=== PATIENT | female | born 1995 | race Hispanic/Latino ===

== ENCOUNTER 2023-04-14 00:37 | Inpatient (IN) | payer OTHER ==
[~2023-04-14] VITALS: Ht 162.6 cm; Wt 72.4 kg
[2023-04-14] VITALS (46 sets, daily range): BP systolic 91–157; BP diastolic 53–97
[2023-04-14] MEDS ORDERED: PREN1CHW6 PO (01:20)
[2023-04-14] MEDS ORDERED: NALBUPHINE HCL 1MG/0.1ML (100MG/10ML) MDV IV ONE (03:40)
[2023-04-14 04:27] LABS: HEMATOCRIT 37.3 % (36.0-47.0); HEMOGLOBIN 12.3 g/dl (12.0-15.5); MEAN CORPUSCULAR HEMOGLOBIN 28.8 pg (27.0-33.0); MEAN CORPUSCULAR VOLUME 87.4 fl (80.0-96.0); PLATELET COUNT, AUTOMATED 138 10^3/uL (150-450); RED BLOOD COUNT 4.27 10^6/uL (4.00-5.40)
[2023-04-14] MEDS ORDERED: PENICILLIN G POTASSIUM 5 MU IV 5 MU in D5W MINI-BAG PLUS 100 ML IV STA (06:44)
[2023-04-14] MEDS ORDERED: LACTATED RINGER'S 1000 ML IV STA (06:44)
[2023-04-14] MEDS ORDERED: CARBOPROST TROMETHAMINE 250 MCG/ML AMP IM PRN (06:45)
[2023-04-14] MEDS ORDERED: LIDOCAINE 1% MDV 20ML VIAL INFIL PRN (06:45)
[2023-04-14] MEDS ORDERED: OXYTOCIN INJ 10UNITS/ML 1ML VIAL IM PRN (06:45)
[2023-04-14] MEDS ORDERED: OXYTOCIN DRIP 30 UNITS in IV 1 EA IV SCH (06:45)
[2023-04-14] MEDS ORDERED: OXYTOCIN INJ 10UNITS/ML 1ML VIAL IV PRN (06:45)
[2023-04-14] MEDS ORDERED: LR 1,000 ML IV SCH ×3 (06:45→10:00)
[2023-04-14] MEDS ORDERED: METHYLERGONOVINE MALEATE 0.2MG/ML 1ML VIAL IM PRN (06:45)
[2023-04-14] MEDS ORDERED: TRANEXAMIC ACID INJection 1,000 MG in NS 100 ML IV PRN (06:45)
[2023-04-14] MEDS ORDERED: OXYTOCIN DRIP 30 UNITS in IV 1 EA IV PRN ×6 (06:45)
[2023-04-14] MEDS: PEN G POT 3,000,000 UNIT/50 ML 3,000,000 UNIT in IV 1 EA IV SCH ×3 (11:07→20:24)
[2023-04-14] MEDS ORDERED: LR 500 ML IV PRN (14:50)
[2023-04-14] MEDS ORDERED: ePHEDrine SULFATE 25 MG/5 ML(5MG/ML) SYRINGE IVP PRN (14:50)
[2023-04-14] MEDS ORDERED: ONDANSETRON 4MG 2ML VIAL IV PRN (14:50)
[2023-04-14] MEDS ORDERED: diphenhydrAMINE 50MG/ML VIAL IV PRN (14:50)
[2023-04-14] MEDS ORDERED: NALOXONE INJ 0.4MG/1ML VIAL IV PRN (14:50)
[2023-04-14] MEDS ORDERED: FENTANYL/ROPIVACAINE/NACL BAG 100 ML EPIDURAL SCH (14:50)
[2023-04-14] MEDS ORDERED: EPIDURAL/PCA KEYS XX PRN (14:50)
[2023-04-14] MEDS ORDERED: CALCIUM CARBONATE 500 MG CHEW U/D PO ONE (17:40)
[2023-04-14] MEDS ORDERED: diphenhydrAMINE 50MG/ML VIAL IV ONE ×2 (17:40→20:15)
[2023-04-14] MEDS ORDERED: D5W/0.45% SODIUM CHLORIDE 1,000 ML IV ONE (17:40)
[2023-04-15] VITALS (10 sets, daily range): BP systolic 107–173; BP diastolic 61–77; O2SAT 97–99
[2023-04-15] MEDS: PEN G POT 3,000,000 UNIT/50 ML 3,000,000 UNIT in IV 1 EA IV SCH (00:06)
[2023-04-15 00:55] LABS: CORD GAS ABE V -5.7; CORD GAS O2 SAT V 51.3 %; CORD GAS PCO2 A 65.7 mmHg; CORD GAS PCO2 V 50.6 mmHg; CORD GAS PH A 7.196 UNITS; CORD GAS PH V 7.256 UNITS; CORD GAS PO2 A 18.6 mmHg; CORD GAS PO2 V 22.6 mmHg; CORD GAS SBC V 18.6 MMOL/L; CORD GAS TCO2 A 26.9 MMOL/L; CORD GAS TCO2 V 23.5 MMOL/L
[2023-04-15 00:56] LABS: CORD GAS HCO3 A 24.9 MMOL/L; CORD GAS O2 SAT A 35.6 %; CORD GAS SBC A 18.8 MMOL/L
[2023-04-15] MEDS ORDERED: DOCUSATE SODIUM 100MG CAPSULE PO PRN (01:15)
[2023-04-15] MEDS ORDERED: ACETAMINOPHEN TAB 650MG DOSE (2X325MG) PO PRN (01:15)
[2023-04-15] MEDS ORDERED: MOM 30ML SUSPENSION UDC PO PRN (01:15)
[2023-04-15] MEDS ORDERED: RHOGAM 300MCG (1500IU) INJ IM SCH (01:15)
[2023-04-15] MEDS ORDERED: METHYLERGONOVINE MALEATE 0.2 MG TAB PO PRN (01:15)
[2023-04-15] MEDS ORDERED: PROMETHAZINE 25 MG TAB PO PRN (01:15)
[2023-04-15] MEDS ORDERED: IBUPROFEN 800 MG TAB PO PRN (01:15)
[2023-04-15] MEDS ORDERED: DIBUCAINE 1% OINTMENT 30GM TOP PRN (01:15)
[2023-04-15] MEDS ORDERED: OXYTOCIN DRIP 30 UNITS in IV 1 EA IV SCH ×4 (01:15)
[2023-04-15] MEDS ORDERED: LR 1,000 ML IV SCH (01:15)
[2023-04-15] MEDS ORDERED: ANUSOL HC CREAM 30GM TOP PRN (01:15)
[2023-04-15] MEDS ORDERED: AMPICILLIN SOD/SULBACTAM SOD 3 GM in D5W MINI-BAG PLUS 100 ML IV ONE (02:00)
[2023-04-15] MEDS: PRENATAL VITAMINS CHEWABLE TABLET PO SCH (08:34)
[2023-04-15] MEDS: IBUPROFEN 600MG TAB PO PRN ×2 (08:34→14:27)
[2023-04-15] MEDS: ACETAMINOPHEN 500 MG TAB PO PRN ×2 (08:34→16:29)
[2023-04-16 06:00] VITALS: BP 107/62; O2SAT 99
[2023-04-16] MEDS: PRENATAL VITAMINS CHEWABLE TABLET PO SCH (07:53)
[2023-04-16] MEDS: IBUPROFEN 600MG TAB PO PRN (07:54)
[2023-04-17] MEDS ORDERED: MEASLES,MUMPS,RUBELLA VACCINE INJ (MMR-II) SC.IMMUN ONE (09:00)
== END 2023-04-16 13:45 | disposition home or self-care (01) | DRG 807 ==
LOC: M LDO 00:37 → M LDI 06:39 → M OBS 04-15 03:20
PROVIDERS: ADMIT Obstetrics & Gynecology; ATTEND Obstetrics & Gynecology
PROC: 10D17Z9 Manual Extraction of Products of Conception, Retained, Via Natural or Artificial Opening (ICD-10-PCS; principal; 2023-04-15)
PROC: 10E0XZZ Delivery of Products of Conception, External Approach (ICD-10-PCS; 2023-04-15)
PROC: 0KQM0ZZ Repair Perineum Muscle, Open Approach (ICD-10-PCS; 2023-04-15)
DX: O48.0 Post-term pregnancy (principal); Z37.0 Single live birth; Z3A.40 40 weeks gestation of pregnancy; O99.824 Streptococcus B carrier state complicating childbirth; O70.1 Second degree perineal laceration during delivery; O73.1 Retained portions of placenta and membranes, without hemorrhage